=== PATIENT | female | born 1945 | race Caucasian/White ===

== ENCOUNTER → 2016-06-28 | Outpatient (CLI) | payer MEDICARE, OTHER | LOC: MC.RAD 09:45 | DX: Z53.9 Procedure and treatment not carried out, unspecified reason (principal) ==

== ENCOUNTER → 2016-07-04 | Outpatient (CLI) | payer MEDICARE, OTHER | LOC: MC.RAD 13:00 | DX: C50.511 Malignant neoplasm of lower-outer quadrant of right female breast (principal) ==

== ENCOUNTER → 2017-05-13 | Outpatient (CLI) | payer MEDICARE, OTHER | LOC: COL.RAD 05-08 12:26 | DX: C50.511 Malignant neoplasm of lower-outer quadrant of right female breast (principal); Z96.653 Presence of artificial knee joint, bilateral | CPT/HCPCS: A9503 ==

== ENCOUNTER 2017-05-22 14:00 | Outpatient (RCR) | payer MEDICARE, OTHER | END 2017-07-14 | disposition home or self-care (01) | LOC: MKS.ESL.PT | DX: I97.2 Postmastectomy lymphedema syndrome (principal); I10 Essential (primary) hypertension; Z90.13 Acquired absence of bilateral breasts and nipples; Z85.3 Personal history of malignant neoplasm of breast; Z96.653 Presence of artificial knee joint, bilateral; Z80.0 Family history of malignant neoplasm of digestive organs | CPT/HCPCS: G8990-GP; G8991-GP ==